=== PATIENT | female | born 1940 | race Caucasian/White ===

== ENCOUNTER 2022-01-08 15:02 | Inpatient (IN) | payer OTHER, BC ==
[~2022-01-08] VITALS: Ht 162.6 cm; Wt 94.1 kg
[2022-01-08] VITALS (7 sets, daily range): BP systolic 104–130
[~2022-01-08 15:02] MED LIST: ACET-2634 PO; ASPI-1393 PO; CLOP75TA2 PO; FERR-57 PO; INSU10VI4 SUBCUT; ISOS30TA85 PO; LEVO250T2 PO; LIP80 PO; LISI40TA13 PO; METO25TA6 PO; METO50TA7 PO; PARO-63 PO; SYN50 PO
[2022-01-08 16:04] LABS: BASOPHILS % (AUTO) 0.4 % (0.0-2.0); EOSINOPHILS # (AUTO) 0.1 K/uL (0.0-0.4); EOSINOPHILS % (AUTO) 1.2 % (0.0-4.0); HEMOGLOBIN 9.3 g/dL (12.0-16.0); LYMPHOCYTES # (AUTO) 1.5 K/uL (1.0-5.5); LYMPHOCYTES % (AUTO) 26.9 % (20.5-51.5); MEAN CORPUSCULAR HEMOGLOBIN 29 pg (27-31); MEAN CORPUSCULAR HGB CONC 33 % (32-36); MEAN CORPUSCULAR VOLUME 88 fL (79.0-98.0); MONOCYTES # (AUTO) 0.3 K/uL (0.0-1.0); MONOCYTES % (AUTO) 5.4 % (1.7-9.3); NEUTROPHILS # (AUTO) 3.8 K/uL (1.8-7.7); NEUTROPHILS % (AUTO) 66.1 % (40.0-70.0); PLATELET COUNT (AUTO) 190 K/uL (130-430); RED BLOOD CELL COUNT(AUTO) 3.17 MIL/uL (4.2-6.2); WHITE BLOOD COUNT (AUTO) 5.7 K/uL (4.8-10.8)
[2022-01-08] MEDS ORDERED: ISOS60TA71 PO (16:34)
[2022-01-08] MEDS ORDERED: METO2.5T6 PO (16:34)
[2022-01-08] MEDS ORDERED: SEMA0.25 SQ (16:34)
[2022-01-08] MEDS ORDERED: DOCU-144 PO (16:34)
[2022-01-08] MEDS ORDERED: METO50TA7 PO (16:34)
[2022-01-08] MEDS ORDERED: LISI40TA13 PO (16:34)
[2022-01-08] MEDS ORDERED: INSU100V9 SQ (16:34)
[2022-01-08] MEDS ORDERED: OMEP40CA20 PO (16:34)
[2022-01-08] MEDS ORDERED: LIP80 PO (16:34)
[2022-01-08] MEDS ORDERED: POTA-80 PO (16:34)
[2022-01-08] MEDS ORDERED: MULT-1094 PO (16:34)
[2022-01-08] MEDS ORDERED: SYN50 PO (16:34)
[2022-01-08] MEDS ORDERED: FERR-69 PO (16:34)
[2022-01-08] MEDS ORDERED: FURO40TA5 PO (16:34)
[2022-01-08 16:38] LABS: ANION GAP 13 (5-15); CALCIUM 10.3 mg/dL (8.4-11.0); CHLORIDE 109 mmol/L (98-107); CREATININE 6.04 mg/dL (0.55-1.30); GLUCOSE 169 mg/dL (70-99)
[2022-01-08 16:49] LABS: ALANINE AMINOTRANSFERASE 22 U/L (12-78); ALBUMIN 3.3 g/dL (3.4-4.8); ASPARTATE AMINOTRANSFERASE 22 U/L (10-37); FREE T4 (FREE THYROXINE) 0.7 ng/dl (0.8-1.5); THYROID STIMULATING HORMONE 5.69 uIu/mL (0.36-3.74); TOTAL BILIRUBIN 0.1 mg/dL (0.0-1.0)
[2022-01-08 16:52] LABS: UREA NITROGEN, BLOOD 162 mg/dL (8-21)
[2022-01-08] MEDS ORDERED: DEXTROSE 50% JECT 50 ML DISP.SYRIN IVP ONE (17:00)
[2022-01-08] MEDS ORDERED: INSULIN REGULAR, HUMAN 10 UNITS/0.1 ML, 3 ML VIAL IVP ONE (17:00)
[2022-01-08] MEDS ORDERED: SODIUM POLYSTYRENE SULFONATE 15 GM/60 ML UDBTL PO ONE (17:00)
[2022-01-08] MEDS ORDERED: NACL 0.9% 1,000 ML IV ONE (17:00)
[2022-01-08] MEDS ORDERED: SODIUM BICARBONATE 8.4% JECT 50 MEQ/50 ML SYRINGE IVP ONE (17:00)
[2022-01-08 17:07] LABS: ACETONE, SERUM NEGATIVE (NEGATIVE)
[2022-01-08 17:09] LABS: COLOR,URINE YELLOW (YELLOW)
[2022-01-08 17:10] LABS: BILIRUBIN,URINE NEGATIVE (NEGATIVE); BLOOD, URINE TRACE (NEGATIVE); CLARITY/URINE SLIGHTLY CLOUDY (CLEAR); GLUCOSE,URINE NEGATIVE (NEGATIVE); KETONES,URINE NEGATIVE (NEGATIVE); LEUKOCYTE ESTERASE ,URINE 3+ (NEGATIVE); NITRITE, URINE NEGATIVE (NEGATIVE); PROTEIN URINE TRACE (NEGATIVE)
[2022-01-08 17:11] LABS: UROBILINOGEN,URINE 0.2 (0.2-1.0)
[2022-01-08 17:15] LABS: BACTERIA,URINE None Seen /HPF (None Seen); MUCUS,URINE None Seen /LPF (None Seen); RBC,URINE 0-3 /HPF (0-3)
[2022-01-08] MEDS: D5/0.45 NS 1,000 ML IV SCH (18:12)
[2022-01-08 20:34] LABS: ANION GAP 11 (5-15); CALCIUM 10.2 mg/dL (8.4-11.0); CHLORIDE 115 mmol/L (98-107); GLUCOSE 54 mg/dL (70-99)
[2022-01-08 20:38] LABS: UREA NITROGEN, BLOOD 155 mg/dL (8-21)
[2022-01-08] MEDS ORDERED: NALOXONE HCL 0.4 MG/ML AMP (NARCAN) IVP PRN ×2 (21:45)
[2022-01-08] MEDS ORDERED: ACETAMINOPHEN 325 MG TABLET PO PRN (21:45)
[2022-01-09] VITALS (24 sets, daily range): BP systolic 86–145
[2022-01-09] MEDS: HYDROcodone/ACETAMIN 5-325 MG TAB (NORCO/ VICODIN) PO PRN ×2 (00:53→20:13)
[2022-01-09] MEDS: D5/0.45 NS 1,000 ML IV SCH ×3 (03:03→20:13)
[2022-01-09] MEDS: INSULIN REGULAR, HUMAN 100 UNITS/ML, 3 ML VIAL (humuLIN R) SUBCUT PRN (06:21)
[2022-01-09] MEDS: LEVOTHYROXINE SODIUM 0.05 MG TABLET PO SCH (06:24)
[2022-01-09 06:31] LABS: ANION GAP 12 (5-15); CALCIUM 9.8 mg/dL (8.4-11.0); CHLORIDE 112 mmol/L (98-107); CREATININE 5.18 mg/dL (0.55-1.30); GLUCOSE 159 mg/dL (70-99)
[2022-01-09 07:10] LABS: BASOPHILS % (AUTO) 0.3 % (0.0-2.0); EOSINOPHILS % (AUTO) 0.9 % (0.0-4.0); HEMOGLOBIN 8.2 g/dL (12.0-16.0); MEAN CORPUSCULAR HEMOGLOBIN 29 pg (27-31); MEAN CORPUSCULAR HGB CONC 33 % (32-36); MEAN CORPUSCULAR VOLUME 88 fL (79.0-98.0); MONOCYTES # (AUTO) 0.4 K/uL (0.0-1.0); NEUTROPHILS # (AUTO) 2.8 K/uL (1.8-7.7); NEUTROPHILS % (AUTO) 65.8 % (40.0-70.0); PLATELET COUNT (AUTO) 162 K/uL (130-430); RED BLOOD CELL COUNT(AUTO) 2.85 MIL/uL (4.2-6.2); RED CELL DISTRIBUTION WIDTH 14.7 % (9.0-15.0); WHITE BLOOD COUNT (AUTO) 4.2 K/uL (4.8-10.8)
[2022-01-09 07:32] LABS: UREA NITROGEN, BLOOD 146 mg/dL (8-21)
[2022-01-09] MEDS ORDERED: SODIUM POLYSTYRENE SULFONATE 15 GM/60 ML UDBTL PO ONE (07:45)
[2022-01-09] MEDS ORDERED: SODIUM BICARBONATE 8.4% JECT 50 MEQ/50 ML SYRINGE IVP ONE (07:45)
[2022-01-09] MEDS: DOCUSATE SODIUM 100 MG CAPSULE PO SCH (08:00)
[2022-01-09] MEDS ORDERED: DEXTROSE 50%-WATER 50 ML DISP.SYRIN IVP PRN (08:00)
[2022-01-09] MEDS ORDERED: GLUCOSE (DEXTROSE) ORAL GEL -Adults PO PRN (08:00)
[2022-01-09] MEDS: ISOSORBIDE MONONITRATE 30 MG TAB.ER.24H PO SCH (08:00)
[2022-01-09] MEDS ORDERED: D5W 1,000 ML IV PRN (08:00)
[2022-01-09] MEDS: MULTIVITS,CA,MINERALS/IRON/FA 1 TABLET PO SCH (08:00)
[2022-01-09] MEDS: FERROUS SULFATE 325 MG TABLET.DR PO SCH (08:00)
[2022-01-09] MEDS: METOPROLOL SUCCINATE 50 MG TAB.SR.24H (TOPROL XL) PO SCH (08:01)
[2022-01-09] MEDS: PANTOPRAZOLE SODIUM 40 MG TAB PO SCH (08:01)
[2022-01-09] MEDS: INSULIN GLARGINE 100 UNITS/ML, 10 ML VIAL SQ SCH (08:21)
[2022-01-09] MEDS ORDERED: FUROSEMIDE 40 MG/4 ML VIAL IVP ONE (12:00)
[2022-01-09] MEDS: HYDROcodone/ACETAMIN 10-325 MG TAB PO PRN (13:48)
[2022-01-09] MEDS ORDERED: SEMAGLUTIDE 0.25 MG SUBCUT SCH (15:00)
[2022-01-09 15:33] LABS: ANION GAP 13 (5-15); CALCIUM 9.6 mg/dL (8.4-11.0); CHLORIDE 114 mmol/L (98-107); CREATININE 5.17 mg/dL (0.55-1.30); GLUCOSE 130 mg/dL (70-99)
[2022-01-09 15:41] LABS: UREA NITROGEN, BLOOD 134 mg/dL (8-21)
[2022-01-09] MEDS: ATORVASTATIN 20 MG TABLET PO SCH (20:13)
[2022-01-10] VITALS (13 sets, daily range): BP systolic 84–145
[2022-01-10] MEDS: D5/0.45 NS 1,000 ML IV SCH ×3 (05:16→20:47)
[2022-01-10] MEDS: LEVOTHYROXINE SODIUM 0.05 MG TABLET PO SCH (06:11)
[2022-01-10] MEDS: INSULIN REGULAR, HUMAN 100 UNITS/ML, 3 ML VIAL (humuLIN R) SUBCUT PRN ×2 (06:28→20:43)
[2022-01-10 06:59] LABS: BASOPHILS % (AUTO) 0.3 % (0.0-2.0); EOSINOPHILS # (AUTO) 0.1 K/uL (0.0-0.4); HEMATOCRIT 23.1 % (36-48); HEMOGLOBIN 7.7 g/dL (12.0-16.0); LYMPHOCYTES # (AUTO) 1.3 K/uL (1.0-5.5); LYMPHOCYTES % (AUTO) 21.9 % (20.5-51.5); MEAN CORPUSCULAR HEMOGLOBIN 29 pg (27-31); MEAN CORPUSCULAR HGB CONC 33 % (32-36); MEAN CORPUSCULAR VOLUME 87 fL (79.0-98.0); MONOCYTES # (AUTO) 0.6 K/uL (0.0-1.0); NEUTROPHILS # (AUTO) 4.1 K/uL (1.8-7.7); NEUTROPHILS % (AUTO) 66.8 % (40.0-70.0); PLATELET COUNT (AUTO) 154 K/uL (130-430); RED BLOOD CELL COUNT(AUTO) 2.64 MIL/uL (4.2-6.2); RED CELL DISTRIBUTION WIDTH 15.2 % (9.0-15.0); WHITE BLOOD COUNT (AUTO) 6.1 K/uL (4.8-10.8)
[2022-01-10 07:00] LABS: ALANINE AMINOTRANSFERASE 16 U/L (12-78); ALBUMIN 2.6 g/dL (3.4-4.8); ANION GAP 11 (5-15); ASPARTATE AMINOTRANSFERASE 21 U/L (10-37); C-REACTIVE PROTEIN QUANT 0.7 mg/dL (0-0.5); CALCIUM 9.5 mg/dL (8.4-11.0); CHLORIDE 111 mmol/L (98-107); CREATININE 4.58 mg/dL (0.55-1.30); GLUCOSE 164 mg/dL (70-99)
[2022-01-10 07:32] LABS: TOTAL BILIRUBIN < 0.1 mg/dL (0.0-1.0)
[2022-01-10] MEDS: INSULIN GLARGINE 100 UNITS/ML, 10 ML VIAL SQ SCH (08:30)
[2022-01-10] MEDS: DOCUSATE SODIUM 100 MG CAPSULE PO SCH (08:31)
[2022-01-10] MEDS: PANTOPRAZOLE SODIUM 40 MG TAB PO SCH (08:31)
[2022-01-10] MEDS: ISOSORBIDE MONONITRATE 30 MG TAB.ER.24H PO SCH (08:31)
[2022-01-10] MEDS: MULTIVITS,CA,MINERALS/IRON/FA 1 TABLET PO SCH (08:32)
[2022-01-10] MEDS: METOPROLOL SUCCINATE 50 MG TAB.SR.24H (TOPROL XL) PO SCH (08:32)
[2022-01-10] MEDS: FERROUS SULFATE 325 MG TABLET.DR PO SCH (08:32)
[2022-01-10 08:48] LABS: UREA NITROGEN, BLOOD 118 mg/dL (8-21)
[2022-01-10 08:50] LABS: ERYTHROCYTE SEDIMENTATION RATE 60 MM/HR (0-20)
[2022-01-10] MEDS: CIPROFLOXACIN LACT 200 MG/D5W 100 ML IV SCH (20:21)
[2022-01-10] MEDS: ATORVASTATIN 20 MG TABLET PO SCH (20:21)
[2022-01-10] MEDS: HYDROcodone/ACETAMIN 10-325 MG TAB PO PRN (20:22)
[2022-01-10] MEDS: ONDANSETRON HCL 4 MG/2 ML VIAL IVP PRN (20:56)
[2022-01-11 01:01] VITALS: BP_SYST 115
[2022-01-11] MEDS: HYDROcodone/ACETAMIN 10-325 MG TAB PO PRN ×2 (03:33→23:28)
[2022-01-11] MEDS: ONDANSETRON HCL 4 MG/2 ML VIAL IVP PRN ×3 (03:34→23:33)
[2022-01-11] MEDS: LEVOTHYROXINE SODIUM 0.05 MG TABLET PO SCH (06:46)
[2022-01-11] MEDS: D5/0.45 NS 1,000 ML IV SCH ×3 (06:46→20:48)
[2022-01-11 07:04] LABS: TOTAL IRON BIND. CAPACITY 162 ug/dL (250-450)
[2022-01-11 07:10] LABS: ANION GAP 11 (5-15); C-REACTIVE PROTEIN QUANT 6.2 mg/dL (0-0.5); CHLORIDE 111 mmol/L (98-107); CREATININE 3.82 mg/dL (0.55-1.30); GLUCOSE 98 mg/dL (70-99); PHOSPHORUS 5.4 mg/dL (2.7-4.5); UREA NITROGEN, BLOOD 95 mg/dL (8-21)
[2022-01-11 08:00] VITALS: BP_SYST 101
[2022-01-11 08:35] LABS: ERYTHROCYTE SEDIMENTATION RATE 71 MM/HR (0-20)
[2022-01-11 08:40] LABS: BASOPHILS % (AUTO) 0.2 % (0.0-2.0); EOSINOPHILS # (AUTO) 0.1 K/uL (0.0-0.4); EOSINOPHILS % (AUTO) 1.4 % (0.0-4.0); HEMATOCRIT 24.4 % (36-48); HEMOGLOBIN 8.2 g/dL (12.0-16.0); LYMPHOCYTES # (AUTO) 1.2 K/uL (1.0-5.5); LYMPHOCYTES % (AUTO) 16.3 % (20.5-51.5); MEAN CORPUSCULAR HEMOGLOBIN 29 pg (27-31); MEAN CORPUSCULAR HGB CONC 34 % (32-36); MEAN CORPUSCULAR VOLUME 87 fL (79.0-98.0); MONOCYTES # (AUTO) 0.8 K/uL (0.0-1.0); MONOCYTES % (AUTO) 11.2 % (1.7-9.3); NEUTROPHILS # (AUTO) 5.1 K/uL (1.8-7.7); NEUTROPHILS % (AUTO) 70.9 % (40.0-70.0); PLATELET COUNT (AUTO) 157 K/uL (130-430); RED BLOOD CELL COUNT(AUTO) 2.81 MIL/uL (4.2-6.2); RED CELL DISTRIBUTION WIDTH 14.8 % (9.0-15.0); RETICULOCYTE COUNT 0.9 % (0.5-1.5); WHITE BLOOD COUNT (AUTO) 7.2 K/uL (4.8-10.8)
[2022-01-11] MEDS: FERROUS SULFATE 325 MG TABLET.DR PO SCH (08:58)
[2022-01-11] MEDS: ISOSORBIDE MONONITRATE 30 MG TAB.ER.24H PO SCH (08:58)
[2022-01-11] MEDS: FOLIC ACID 1 MG TABLET PO SCH (08:58)
[2022-01-11] MEDS: PANTOPRAZOLE SODIUM 40 MG TAB PO SCH (08:58)
[2022-01-11] MEDS: METOPROLOL SUCCINATE 50 MG TAB.SR.24H (TOPROL XL) PO SCH (08:59)
[2022-01-11] MEDS: MULTIVITS,CA,MINERALS/IRON/FA 1 TABLET PO SCH (08:59)
[2022-01-11] MEDS: CIPROFLOXACIN LACT 200 MG/D5W 100 ML IV SCH ×2 (08:59→20:38)
[2022-01-11] MEDS: DOCUSATE SODIUM 100 MG CAPSULE PO SCH (08:59)
[2022-01-11] MEDS: INSULIN GLARGINE 100 UNITS/ML, 10 ML VIAL SQ SCH (09:19)
[2022-01-11 11:30] VITALS: BP_SYST 120
[2022-01-11 15:29] VITALS: BP_SYST 94
[2022-01-11 19:45] VITALS: BP_SYST 122
[2022-01-11] MEDS: ATORVASTATIN 20 MG TABLET PO SCH (20:38)
[2022-01-11] MEDS: INSULIN REGULAR, HUMAN 100 UNITS/ML, 3 ML VIAL (humuLIN R) SUBCUT PRN (20:42)
[2022-01-12 01:12] VITALS: BP_SYST 128
[2022-01-12] MEDS: HYDROcodone/ACETAMIN 5-325 MG TAB (NORCO/ VICODIN) PO PRN (03:10)
[2022-01-12] MEDS: D5/0.45 NS 1,000 ML IV SCH ×3 (06:52→21:54)
[2022-01-12] MEDS: LEVOTHYROXINE SODIUM 0.05 MG TABLET PO SCH (07:01)
[2022-01-12] MEDS: HYDROcodone/ACETAMIN 10-325 MG TAB PO PRN ×3 (07:02→21:52)
[2022-01-12 07:36] LABS: ANION GAP 11 (5-15); C-REACTIVE PROTEIN QUANT 14.6 mg/dL (0-0.5); CALCIUM 9.7 mg/dL (8.4-11.0); CHLORIDE 108 mmol/L (98-107); CREATININE 3.53 mg/dL (0.55-1.30); GLUCOSE 151 mg/dL (70-99); PHOSPHORUS 4.8 mg/dL (2.7-4.5); UREA NITROGEN, BLOOD 79 mg/dL (8-21)
[2022-01-12 08:00] VITALS: BP_SYST 102
[2022-01-12 08:06] LABS: FOLATE (FOLIC ACID) 13.5 ng/mL (>3.0)
[2022-01-12 08:42] LABS: BASOPHILS % (AUTO) 0.3 % (0.0-2.0); EOSINOPHILS # (AUTO) 0.1 K/uL (0.0-0.4); EOSINOPHILS % (AUTO) 1.5 % (0.0-4.0); HEMATOCRIT 24.6 % (36-48); HEMOGLOBIN 8.2 g/dL (12.0-16.0); LYMPHOCYTES # (AUTO) 1.2 K/uL (1.0-5.5); MEAN CORPUSCULAR HEMOGLOBIN 29 pg (27-31); MEAN CORPUSCULAR HGB CONC 33 % (32-36); MEAN CORPUSCULAR VOLUME 87 fL (79.0-98.0); MONOCYTES # (AUTO) 0.8 K/uL (0.0-1.0); NEUTROPHILS # (AUTO) 5.8 K/uL (1.8-7.7); NEUTROPHILS % (AUTO) 73.2 % (40.0-70.0); PLATELET COUNT (AUTO) 150 K/uL (130-430); RED BLOOD CELL COUNT(AUTO) 2.82 MIL/uL (4.2-6.2); RED CELL DISTRIBUTION WIDTH 14.9 % (9.0-15.0); WHITE BLOOD COUNT (AUTO) 7.9 K/uL (4.8-10.8)
[2022-01-12] MEDS: INSULIN GLARGINE 100 UNITS/ML, 10 ML VIAL SQ SCH (08:54)
[2022-01-12] MEDS: PANTOPRAZOLE SODIUM 40 MG TAB PO SCH (09:04)
[2022-01-12] MEDS: FERROUS SULFATE 325 MG TABLET.DR PO SCH (09:04)
[2022-01-12] MEDS: DOCUSATE SODIUM 100 MG CAPSULE PO SCH (09:04)
[2022-01-12] MEDS: FOLIC ACID 1 MG TABLET PO SCH (09:04)
[2022-01-12] MEDS: MULTIVITS,CA,MINERALS/IRON/FA 1 TABLET PO SCH (09:04)
[2022-01-12] MEDS: METOPROLOL SUCCINATE 50 MG TAB.SR.24H (TOPROL XL) PO SCH (09:05)
[2022-01-12] MEDS: ISOSORBIDE MONONITRATE 30 MG TAB.ER.24H PO SCH (09:05)
[2022-01-12] MEDS: CIPROFLOXACIN LACT 200 MG/D5W 100 ML IV SCH ×2 (09:06→21:54)
[2022-01-12 09:22] LABS: ERYTHROCYTE SEDIMENTATION RATE 87 MM/HR (0-20)
[2022-01-12] MEDS: INSULIN REGULAR, HUMAN 100 UNITS/ML, 3 ML VIAL (humuLIN R) SUBCUT PRN ×2 (11:44→18:06)
[2022-01-12 12:00] VITALS: BP_SYST 112
[2022-01-12 16:00] VITALS: BP_SYST 117
[2022-01-12 20:00] VITALS: BP_SYST 105
[2022-01-12] MEDS: HEPARIN SODIUM,PORCINE 5,000 UNITS/ML VIAL SUBCUT SCH (21:00)
[2022-01-12] MEDS: ATORVASTATIN 20 MG TABLET PO SCH (21:51)
[2022-01-13 00:20] VITALS: BP_SYST 117
[2022-01-13] MEDS: D5/0.45 NS 1,000 ML IV SCH ×3 (05:10→21:10)
[2022-01-13] MEDS: LEVOTHYROXINE SODIUM 0.05 MG TABLET PO SCH (07:04)
[2022-01-13 07:29] LABS: BASOPHILS % (AUTO) 0.3 % (0.0-2.0); EOSINOPHILS # (AUTO) 0.2 K/uL (0.0-0.4); EOSINOPHILS % (AUTO) 2.4 % (0.0-4.0); HEMATOCRIT 22.8 % (36-48); HEMOGLOBIN 7.6 g/dL (12.0-16.0); LYMPHOCYTES # (AUTO) 1.4 K/uL (1.0-5.5); MEAN CORPUSCULAR HEMOGLOBIN 29 pg (27-31); MEAN CORPUSCULAR HGB CONC 33 % (32-36); MEAN CORPUSCULAR VOLUME 88 fL (79.0-98.0); MONOCYTES # (AUTO) 0.7 K/uL (0.0-1.0); MONOCYTES % (AUTO) 10.9 % (1.7-9.3); NEUTROPHILS # (AUTO) 4.3 K/uL (1.8-7.7); NEUTROPHILS % (AUTO) 65.4 % (40.0-70.0); PLATELET COUNT (AUTO) 141 K/uL (130-430); RED CELL DISTRIBUTION WIDTH 14.6 % (9.0-15.0); WHITE BLOOD COUNT (AUTO) 6.6 K/uL (4.8-10.8)
[2022-01-13 07:59] LABS: ALANINE AMINOTRANSFERASE 15 U/L (12-78); ALBUMIN 2.2 g/dL (3.4-4.8); ANION GAP 8 (5-15); ASPARTATE AMINOTRANSFERASE 16 U/L (10-37); CALCIUM 9.6 mg/dL (8.4-11.0); CHLORIDE 107 mmol/L (98-107); CREATININE 3.42 mg/dL (0.55-1.30); GLUCOSE 162 mg/dL (70-99); PHOSPHORUS 4.5 mg/dL (2.7-4.5); TOTAL BILIRUBIN 0.1 mg/dL (0.0-1.0); UREA NITROGEN, BLOOD 68 mg/dL (8-21)
[2022-01-13 08:17] VITALS: BP_SYST 118
[2022-01-13] MEDS: CIPROFLOXACIN LACT 200 MG/D5W 100 ML IV SCH ×2 (09:01→22:49)
[2022-01-13] MEDS: FOLIC ACID 1 MG TABLET PO SCH (09:01)
[2022-01-13] MEDS: MULTIVITS,CA,MINERALS/IRON/FA 1 TABLET PO SCH (09:01)
[2022-01-13] MEDS: PANTOPRAZOLE SODIUM 40 MG TAB PO SCH (09:01)
[2022-01-13] MEDS: FERROUS SULFATE 325 MG TABLET.DR PO SCH (09:01)
[2022-01-13] MEDS: METOPROLOL SUCCINATE 50 MG TAB.SR.24H (TOPROL XL) PO SCH (09:02)
[2022-01-13] MEDS: DOCUSATE SODIUM 100 MG CAPSULE PO SCH (09:02)
[2022-01-13] MEDS: ISOSORBIDE MONONITRATE 30 MG TAB.ER.24H PO SCH (09:03)
[2022-01-13] MEDS: HEPARIN SODIUM,PORCINE 5,000 UNITS/ML VIAL SUBCUT SCH ×2 (09:08→21:00)
[2022-01-13] MEDS: INSULIN GLARGINE 100 UNITS/ML, 10 ML VIAL SQ SCH (09:12)
[2022-01-13] MEDS: HYDROcodone/ACETAMIN 10-325 MG TAB PO PRN (09:21)
[2022-01-13 10:22] LABS: ERYTHROCYTE SEDIMENTATION RATE 106 MM/HR (0-20)
[2022-01-13 11:02] LABS: C-REACTIVE PROTEIN QUANT 18.5 mg/dL (0-0.5)
[2022-01-13 11:30] VITALS: BP_SYST 93
[2022-01-13] MEDS: INSULIN REGULAR, HUMAN 100 UNITS/ML, 3 ML VIAL (humuLIN R) SUBCUT PRN ×2 (12:23→16:53)
[2022-01-13 15:29] VITALS: BP_SYST 100
[2022-01-13] MEDS: EPOETIN ALFA-EPBX 4,000 UNITS/ML VIAL SUBCUT SCH (17:34)
[2022-01-13 20:29] VITALS: BP_SYST 105
[2022-01-13] MEDS: ATORVASTATIN 20 MG TABLET PO SCH (22:51)
[2022-01-14] VITALS: BP_SYST 109
[2022-01-14 04:00] VITALS: BP_SYST 111
[2022-01-14] MEDS: D5/0.45 NS 1,000 ML IV SCH ×3 (05:10→16:32)
[2022-01-14 07:58] VITALS: BP_SYST 104
[2022-01-14] MEDS: FOLIC ACID 1 MG TABLET PO SCH (09:00)
[2022-01-14] MEDS: PANTOPRAZOLE SODIUM 40 MG TAB PO SCH (09:00)
[2022-01-14] MEDS: CIPROFLOXACIN LACT 200 MG/D5W 100 ML IV SCH ×2 (09:00→21:42)
[2022-01-14] MEDS: MULTIVITS,CA,MINERALS/IRON/FA 1 TABLET PO SCH (09:00)
[2022-01-14] MEDS: LEVOTHYROXINE SODIUM 0.05 MG TABLET PO SCH (09:01)
[2022-01-14] MEDS: DOCUSATE SODIUM 100 MG CAPSULE PO SCH (09:01)
[2022-01-14] MEDS: FERROUS SULFATE 325 MG TABLET.DR PO SCH (09:08)
[2022-01-14] MEDS: METOPROLOL SUCCINATE 50 MG TAB.SR.24H (TOPROL XL) PO SCH (09:09)
[2022-01-14] MEDS: ISOSORBIDE MONONITRATE 30 MG TAB.ER.24H PO SCH (09:10)
[2022-01-14] MEDS: HYDROcodone/ACETAMIN 10-325 MG TAB PO PRN ×2 (09:10→21:46)
[2022-01-14] MEDS: INSULIN GLARGINE 100 UNITS/ML, 10 ML VIAL SQ SCH (09:13)
[2022-01-14] MEDS: HEPARIN SODIUM,PORCINE 5,000 UNITS/ML VIAL SUBCUT SCH ×2 (09:16→21:43)
[2022-01-14 09:35] LABS: ANION GAP 11 (5-15); CALCIUM 9.7 mg/dL (8.4-11.0); CHLORIDE 106 mmol/L (98-107); CREATININE 3.31 mg/dL (0.55-1.30); GLUCOSE 87 mg/dL (70-99); UREA NITROGEN, BLOOD 64 mg/dL (8-21)
[2022-01-14 11:43] VITALS: BP_SYST 100
[2022-01-14 16:22] VITALS: BP_SYST 106
[2022-01-14] MEDS: ONDANSETRON HCL 4 MG/2 ML VIAL IVP PRN (16:48)
[2022-01-14] MEDS: INSULIN REGULAR, HUMAN 100 UNITS/ML, 3 ML VIAL (humuLIN R) SUBCUT PRN ×2 (16:53→21:54)
[2022-01-14 19:40] VITALS: BP_SYST 125
[2022-01-14] MEDS: ATORVASTATIN 20 MG TABLET PO SCH (21:42)
[2022-01-15 00:27] VITALS: BP_SYST 121
[2022-01-15] MEDS: LEVOTHYROXINE SODIUM 0.05 MG TABLET PO SCH (06:06)
[2022-01-15] MEDS: D5/0.45 NS 1,000 ML IV SCH ×3 (06:07→21:30)
[2022-01-15] MEDS: INSULIN REGULAR, HUMAN 100 UNITS/ML, 3 ML VIAL (humuLIN R) SUBCUT PRN ×3 (06:11→21:33)
[2022-01-15 08:11] LABS: BASOPHILS % (AUTO) 0.5 % (0.0-2.0); EOSINOPHILS # (AUTO) 0.2 K/uL (0.0-0.4); EOSINOPHILS % (AUTO) 2.4 % (0.0-4.0); HEMOGLOBIN 7.2 g/dL (12.0-16.0); LYMPHOCYTES # (AUTO) 1.3 K/uL (1.0-5.5); LYMPHOCYTES % (AUTO) 20.5 % (20.5-51.5); MEAN CORPUSCULAR HEMOGLOBIN 29 pg (27-31); MEAN CORPUSCULAR HGB CONC 33 % (32-36); MEAN CORPUSCULAR VOLUME 88 fL (79.0-98.0); MONOCYTES # (AUTO) 0.6 K/uL (0.0-1.0); MONOCYTES % (AUTO) 9.8 % (1.7-9.3); NEUTROPHILS # (AUTO) 4.3 K/uL (1.8-7.7); NEUTROPHILS % (AUTO) 66.8 % (40.0-70.0); PLATELET COUNT (AUTO) 200 K/uL (130-430); RED BLOOD CELL COUNT(AUTO) 2.46 MIL/uL (4.2-6.2); RED CELL DISTRIBUTION WIDTH 14.6 % (9.0-15.0); WHITE BLOOD COUNT (AUTO) 6.4 K/uL (4.8-10.8)
[2022-01-15 08:21] LABS: ANION GAP 10 (5-15); C-REACTIVE PROTEIN QUANT 20.8 mg/dL (0-0.5); CALCIUM 9.7 mg/dL (8.4-11.0); CHLORIDE 109 mmol/L (98-107); CREATININE 3.45 mg/dL (0.55-1.30); GLUCOSE 175 mg/dL (70-99); PHOSPHORUS 4.3 mg/dL (2.7-4.5); UREA NITROGEN, BLOOD 69 mg/dL (8-21)
[2022-01-15] MEDS: CIPROFLOXACIN LACT 200 MG/D5W 100 ML IV SCH ×2 (09:00→21:30)
[2022-01-15] MEDS: HEPARIN SODIUM,PORCINE 5,000 UNITS/ML VIAL SUBCUT SCH (09:00)
[2022-01-15] MEDS: INSULIN GLARGINE 100 UNITS/ML, 10 ML VIAL SQ SCH (09:00)
[2022-01-15 09:53] LABS: HEMATOCRIT 21.7 % (36-48)
[2022-01-15 10:16] LABS: ERYTHROCYTE SEDIMENTATION RATE 121 MM/HR (0-20)
[2022-01-15] MEDS ORDERED: FOLI-43 PO (10:24)
[2022-01-15] MEDS ORDERED: CIPR250T4 PO (10:24)
[2022-01-15] MEDS: ISOSORBIDE MONONITRATE 30 MG TAB.ER.24H PO SCH (11:01)
[2022-01-15] MEDS: PANTOPRAZOLE SODIUM 40 MG TAB PO SCH (11:01)
[2022-01-15] MEDS: MULTIVITS,CA,MINERALS/IRON/FA 1 TABLET PO SCH (11:02)
[2022-01-15] MEDS: FERROUS SULFATE 325 MG TABLET.DR PO SCH (11:02)
[2022-01-15] MEDS: FOLIC ACID 1 MG TABLET PO SCH (11:02)
[2022-01-15] MEDS: DOCUSATE SODIUM 100 MG CAPSULE PO SCH (11:02)
[2022-01-15] MEDS: METOPROLOL SUCCINATE 50 MG TAB.SR.24H (TOPROL XL) PO SCH (11:03)
[2022-01-15 12:00] VITALS: BP_SYST 107
[2022-01-15 16:00] VITALS: BP_SYST 101
[2022-01-15] MEDS: EPOETIN ALFA-EPBX 4,000 UNITS/ML VIAL SUBCUT SCH (17:00)
[2022-01-15] MEDS ORDERED: EPOETIN ALFA 4,000 UNITS/ML VIAL ONE (18:02)
[2022-01-15 20:00] VITALS: BP_SYST 127
[2022-01-15] MEDS: ATORVASTATIN 20 MG TABLET PO SCH (21:31)
[2022-01-15] MEDS: HYDROcodone/ACETAMIN 10-325 MG TAB PO PRN (23:57)
[2022-01-15] MEDS: ONDANSETRON HCL 4 MG/2 ML VIAL IVP PRN (23:58)
[2022-01-16] VITALS: BP_SYST 125
[2022-01-16] MEDS: LEVOTHYROXINE SODIUM 0.05 MG TABLET PO SCH (06:25)
[2022-01-16] MEDS: D5/0.45 NS 1,000 ML IV SCH ×3 (06:26→21:10)
[2022-01-16] MEDS: INSULIN REGULAR, HUMAN 100 UNITS/ML, 3 ML VIAL (humuLIN R) SUBCUT PRN (06:30)
[2022-01-16 07:27] LABS: ANION GAP 10 (5-15); C-REACTIVE PROTEIN QUANT 11.1 mg/dL (0-0.5); CALCIUM 9.4 mg/dL (8.4-11.0); CHLORIDE 109 mmol/L (98-107); CREATININE 3.37 mg/dL (0.55-1.30); GLUCOSE 263 mg/dL (70-99); PHOSPHORUS 3.7 mg/dL (2.7-4.5); UREA NITROGEN, BLOOD 72 mg/dL (8-21)
[2022-01-16 08:56] LABS: BASOPHILS % (AUTO) 0.4 % (0.0-2.0); EOSINOPHILS # (AUTO) 0.2 K/uL (0.0-0.4); EOSINOPHILS % (AUTO) 3.1 % (0.0-4.0); HEMOGLOBIN 7.1 g/dL (12.0-16.0); LYMPHOCYTES # (AUTO) 1.2 K/uL (1.0-5.5); LYMPHOCYTES % (AUTO) 21.7 % (20.5-51.5); MEAN CORPUSCULAR HEMOGLOBIN 29 pg (27-31); MEAN CORPUSCULAR HGB CONC 33 % (32-36); MEAN CORPUSCULAR VOLUME 89 fL (79.0-98.0); MONOCYTES # (AUTO) 0.5 K/uL (0.0-1.0); NEUTROPHILS # (AUTO) 3.7 K/uL (1.8-7.7); NEUTROPHILS % (AUTO) 65.8 % (40.0-70.0); PLATELET COUNT (AUTO) 218 K/uL (130-430); RED BLOOD CELL COUNT(AUTO) 2.41 MIL/uL (4.2-6.2); RED CELL DISTRIBUTION WIDTH 14.5 % (9.0-15.0); WHITE BLOOD COUNT (AUTO) 5.6 K/uL (4.8-10.8)
[2022-01-16] MEDS: DOCUSATE SODIUM 100 MG CAPSULE PO SCH (09:00)
[2022-01-16] MEDS: PANTOPRAZOLE SODIUM 40 MG TAB PO SCH (09:52)
[2022-01-16] MEDS: FOLIC ACID 1 MG TABLET PO SCH (09:52)
[2022-01-16] MEDS: MULTIVITS,CA,MINERALS/IRON/FA 1 TABLET PO SCH (09:52)
[2022-01-16] MEDS: FERROUS SULFATE 325 MG TABLET.DR PO SCH (09:53)
[2022-01-16] MEDS: ISOSORBIDE MONONITRATE 30 MG TAB.ER.24H PO SCH (09:53)
[2022-01-16] MEDS: METOPROLOL SUCCINATE 50 MG TAB.SR.24H (TOPROL XL) PO SCH (09:53)
[2022-01-16] MEDS: INSULIN GLARGINE 100 UNITS/ML, 10 ML VIAL SQ SCH (10:00)
[2022-01-16] MEDS: CIPROFLOXACIN LACT 200 MG/D5W 100 ML IV SCH ×2 (10:10→21:00)
[2022-01-16] MEDS ORDERED: EPOE40007 SUBCUT (10:18)
[2022-01-16 10:37] LABS: HEMATOCRIT 21.3 % (36-48)
[2022-01-16 12:39] LABS: ERYTHROCYTE SEDIMENTATION RATE 119 MM/HR (0-20)
[2022-01-16 12:50] VITALS: BP_SYST 126
[2022-01-16 16:32] VITALS: BP_SYST 124
[2022-01-16] MEDS: ATORVASTATIN 20 MG TABLET PO SCH (21:00)
[2022-01-17] MEDS: INSULIN REGULAR, HUMAN 100 UNITS/ML, 3 ML VIAL (humuLIN R) SUBCUT PRN (00:04)
[2022-01-17 00:52] VITALS: BP_SYST 102; BP_SYST 141
[2022-01-17] MEDS: D5/0.45 NS 1,000 ML IV SCH ×2 (05:27→13:13)
[2022-01-17] MEDS: LEVOTHYROXINE SODIUM 0.05 MG TABLET PO SCH (06:25)
[2022-01-17 07:58] LABS: BASOPHILS % (AUTO) 0.4 % (0.0-2.0); EOSINOPHILS # (AUTO) 0.2 K/uL (0.0-0.4); EOSINOPHILS % (AUTO) 2.8 % (0.0-4.0); HEMATOCRIT 22.9 % (36-48); HEMOGLOBIN 7.5 g/dL (12.0-16.0); LYMPHOCYTES # (AUTO) 1.6 K/uL (1.0-5.5); LYMPHOCYTES % (AUTO) 23.7 % (20.5-51.5); MEAN CORPUSCULAR HEMOGLOBIN 29 pg (27-31); MEAN CORPUSCULAR HGB CONC 33 % (32-36); MEAN CORPUSCULAR VOLUME 89 fL (79.0-98.0); MONOCYTES # (AUTO) 0.7 K/uL (0.0-1.0); MONOCYTES % (AUTO) 10.8 % (1.7-9.3); NEUTROPHILS # (AUTO) 4.3 K/uL (1.8-7.7); NEUTROPHILS % (AUTO) 62.3 % (40.0-70.0); PLATELET COUNT (AUTO) 255 K/uL (130-430); RED BLOOD CELL COUNT(AUTO) 2.59 MIL/uL (4.2-6.2); RED CELL DISTRIBUTION WIDTH 14.9 % (9.0-15.0); WHITE BLOOD COUNT (AUTO) 6.9 K/uL (4.8-10.8)
[2022-01-17 08:07] LABS: ALANINE AMINOTRANSFERASE 21 U/L (12-78); ANION GAP 10 (5-15); ASPARTATE AMINOTRANSFERASE 20 U/L (10-37); C-REACTIVE PROTEIN QUANT 6.2 mg/dL (0-0.5); CALCIUM 9.9 mg/dL (8.4-11.0); CHLORIDE 109 mmol/L (98-107); CREATININE 3.35 mg/dL (0.55-1.30); GLUCOSE 85 mg/dL (70-99); PHOSPHORUS 3.5 mg/dL (2.7-4.5); TOTAL BILIRUBIN 0.2 mg/dL (0.0-1.0); UREA NITROGEN, BLOOD 74 mg/dL (8-21)
[2022-01-17] MEDS: FOLIC ACID 1 MG TABLET PO SCH (09:00)
[2022-01-17] MEDS: MULTIVITS,CA,MINERALS/IRON/FA 1 TABLET PO SCH (09:00)
[2022-01-17] MEDS: INSULIN GLARGINE 100 UNITS/ML, 10 ML VIAL SQ SCH (09:00)
[2022-01-17] MEDS: FERROUS SULFATE 325 MG TABLET.DR PO SCH (09:00)
[2022-01-17] MEDS: ISOSORBIDE MONONITRATE 30 MG TAB.ER.24H PO SCH (09:00)
[2022-01-17] MEDS: PANTOPRAZOLE SODIUM 40 MG TAB PO SCH (09:00)
[2022-01-17] MEDS: DOCUSATE SODIUM 100 MG CAPSULE PO SCH (09:00)
[2022-01-17] MEDS: METOPROLOL SUCCINATE 50 MG TAB.SR.24H (TOPROL XL) PO SCH (09:00)
[2022-01-17 11:11] LABS: ERYTHROCYTE SEDIMENTATION RATE 116 MM/HR (0-20)
[2022-01-17 11:35] VITALS: BP_SYST 133
[2022-01-17 14:32] VITALS: BP_SYST 116
[2022-01-17 15:10] VITALS: BP_SYST 111
== END 2022-01-17 15:20 | DRG 871 ==
LOC: SED 15:02 → SIC 17:28 → STU 01-10 11:20 → SMU 01-12 09:34
PROVIDERS: ADMIT Preventive Medicine Preventive Medicine/Occupational Environmental Medicine; ATTEND Preventive Medicine Preventive Medicine/Occupational Environmental Medicine
PROC: 30233N1 Transfusion of Nonautologous Red Blood Cells into Peripheral Vein, Percutaneous Approach (ICD-10-PCS; principal; 2022-01-17)
DX: A41.9 Sepsis, unspecified organism (principal); N17.0 Acute kidney failure with tubular necrosis; E87.1 Hypo-osmolality and hyponatremia; N39.0 Urinary tract infection, site not specified; E87.20 Acidosis, unspecified; F03.94 Unspecified dementia, unspecified severity, with anxiety; I13.0 Hypertensive heart and chronic kidney disease with heart failure and stage 1 through stage 4 chronic kidney disease, or unspecified chronic kidney disease; E11.65 Type 2 diabetes mellitus with hyperglycemia; E78.5 Hyperlipidemia, unspecified; I25.10 Atherosclerotic heart disease of native coronary artery without angina pectoris; D63.1 Anemia in chronic kidney disease; E87.5 Hyperkalemia; E03.9 Hypothyroidism, unspecified; E83.39 Other disorders of phosphorus metabolism; E88.09 Other disorders of plasma-protein metabolism, not elsewhere classified; E83.41 Hypermagnesemia; F19.10 Other psychoactive substance abuse, uncomplicated; E11.21 Type 2 diabetes mellitus with diabetic nephropathy; B96.1 Klebsiella pneumoniae [K. pneumoniae] as the cause of diseases classified elsewhere; I50.9 Heart failure, unspecified; N18.9 Chronic kidney disease, unspecified; E11.22 Type 2 diabetes mellitus with diabetic chronic kidney disease; K59.00 Constipation, unspecified; Z20.822 Contact with and (suspected) exposure to COVID-19; Z88.0 Allergy status to penicillin; Z88.2 Allergy status to sulfonamides; Z88.8 Allergy status to other drugs, medicaments and biological substances; Z79.4 Long term (current) use of insulin
CPT/HCPCS: 36415; 70450-TC; 71045; 76376; 80048; 80053; 81000; 82009; 82550; 82607; 82728; 82746; 82962; 83540; 83550; 83605; 83735; 84100; 84439; 84443; 84484; 85025; 85044; 85651-TC; 86140; 86886; 86900; 86901; 86920; 87081; 87086; 96361; 96374; 96375; 97110-GP; 97163-GP; 97530-GP; 99285; G0378; J0744; J0885; J1644; J1815; J1940; J2405; J7030; J7040; P9021; Q5106